=== PATIENT | female | born 1965 | race Caucasian/White ===

== ENCOUNTER 2016-07-31 17:12 | Observation (INO) | payer OTHER ==
[~2016-07-31] VITALS: Ht 167.6 cm; Wt 115.9 kg
[2016-07-31 20:05] VITALS: BP 136/83; PULSE 67; RESP 18; O2SAT 99
[2016-07-31] MEDS ORDERED: FLUO10CA30 PO (20:27)
[2016-07-31] MEDS ORDERED: MESA400C2 PO (20:27)
[2016-07-31] MEDS ORDERED: PRE10 PO (20:27)
[2016-07-31] MEDS ORDERED: FLUO20CA25 PO (20:28)
[2016-07-31] MEDS ORDERED: LACT1CAP75 PO (20:51)
[2016-07-31] MEDS ORDERED: ACET-2561 PO (20:51)
[2016-07-31] MEDS ORDERED: ASCO-294 PO (20:51)
[2016-07-31] MEDS ORDERED: FOLI200T12 PO (20:51)
[2016-07-31] MEDS ORDERED: Ondansetron 2 mg/mL 2 mL Inj IVPUSH PRN (20:55)
[2016-07-31] MEDS ORDERED: Atropine 1 mg/10 mL (Code) Syringe IVPUSH PRN (20:55)
[2016-07-31] MEDS ORDERED: Alum-Mag Hydrox-Simeth 30 mL Suspension PO PRN (20:55)
[2016-07-31] MEDS ORDERED: Polyethylene Glycol (PEG) 17 Gm Powder PO PRN (20:55)
[2016-07-31] MEDS ORDERED: Senna-Docusate 8.6-50 mg Tablet PO PRN (20:55)
--- NOTE | 2016-07-31 21:09 | NUR ---
Admit Note Pt arrived from [facility] to room 3026 at around 2000. Alert and oriented. Stable on feet. No chest pain, nitro patch is on.
[2016-07-31 21:26] LABS: BASOPHILS % (AUTO) 0.2 % (0-3); EOSINOPHILS % (AUTO) 0.9 % (0-5); MONOCYTES % (AUTO) 7.1 % (4-12); Mean Corpuscular Hemoglobin 26.2 pg (27.0-35.0); Mean Corpuscular Volume 84.8 fL (81-100); NEUTROPHILS % (AUTO) 70.1 % (40-74); Platelet Count 318 bil/L (150-400)
[2016-07-31 21:43] LABS: INR 0.93 ratio
[2016-07-31 22:17] LABS: Magnesium 2.4 mg/dL (1.6-2.6); TROPONIN T 0.01 ug/L (0.0-0.011)
--- NOTE | 2016-07-31 23:34 | PCM.HPMED ---
Subjective Date of Service July 31, 2016 Primary Provider: Admitting Physician: Osmel Grace Primary Care Physician: Nacho Velez Attending Physician: Osmel Grace Chief Complaint: chest pressure History of Present Illness: 50-year-old female with recent diagnosis of Crohn's disease currently on prednisone taper presents from [facility] for further evaluation of her chest pressure. Patient reports that she was at work yesterday when she noticed some intermittent substernal chest pressure. She was evaluated by the RN at her work is reported to have had an irregular heart rhythm so she was recommended to go to the hospital for further evaluation. Patient reports in the preceding day she had some left shoulder and left arm pain, which happen to worsen today. Patient describes the chest pressure tightness in the middle of her chest that last for a few minutes. She denies any associations or triggers. She reports that she will occasionally feel "clammy" when it occurs. She denies any associated nausea, headache, dizziness, ringing in her ears, or lightheadedness. She denies any recent illnesses, fevers, abdominal pain, or diarrhea. She has never had chest pressure like this before and denies any recent stress. She is currently on a prednisone taper that was initiated in May, is currently taking 10 mg daily, and is scheduled for taper down to 5 mg in 3 days. She reports she was diagnosed with Crohn's disease in November. In the ER of [facility], her vital signs were normal and stable. She had a CBC, CMP, chest x-ray, and troponin were all unremarkable. She had an EKG that showed sinus rhythm rate of 73, with PACs and questionable left atrial enlargement with early R-wave progression and probable LVH. Patient reports she had a normal stress test but that was very long ago. She reports she has an extensive family history of CAD, with both her parents having CABGs in their 50s. Cardiology was consulted by the ER, and was recommended to transfer over for ACS workup and stress testing. Review of Systems: 12 point review of system negative except as stated in history of present illness Allergies Coded Allergies: No Known Allergies (Verified Allergy, Unknown, 07/31/16) Home Medications Tylenol Vitamin C Fluoxetine 20 mg daily Multivitamin Probiotic Mesalamine 400 mg 4 times a day Prednisone 10 mg daily [facility] Crohn's disease diagnosed November 2015 Anxiety and depression Surgical History Denies any past surgical history Family History Extensive family history of CAD and diabetes Social History Hx Alcohol Use: No Hx Substance Use: No Hx Tobacco Use: No Living Arrangement: with Family Exam Vital Signs Vital Sign - Last Date Time Temp Pulse Resp B/P Pulse Ox O2 Delivery O2 Flow Rate FiO2 07/31/16 20:05 36.7 67 18 136/83 99 Room Air Exam General: Obese female who appears in no acute distress, alert and oriented 3 HEENT: PERRLA, EOMI, sclerae anicteric, oropharynx moist and pink Neck: Soft, nontender, no JVD noted CV: Regular rate and rhythm with frequent pauses, no M/R/C noted, peripheral pulses intact and equal Respiratory: CTAB, no wheezing or rhonchi, normal respiratory effort Abdomen: Obese, soft, nontender, nondistended, NABS MSK: Muscle strength grossly intact and equal, no swollen or tender joints, no clubbing or cyanosis or edema Neuro: Cranial 2-12 grossly intact, face symmetric, fluent and coherent speech Skin: Warm, dry, intact Psych: Appropriate mood and affect, linear thought process Lab and Diagnostics Result Diagram: 07/31/16211907/31/162119 X-Rays, CTs and MRIs 2 view CXR No acute CP disease 12-lead ECG EKG from outside hospital Sinus rhythm rate of 73, PACs, questionable JAM, early R-wave, probable LVH Assessment & Plan 50-year-old female with recent diagnosis of Crohn's disease currently on prednisone taper presents from [facility] for further evaluation of her chest pressure. Acute Chest pain, Present on Admission Patient was transferred over for further evaluation of her intermittent chest pressure. Her left arm and shoulder pain was present a few days prior, but did worsen today, does not appear to be associated with the chest pressure episodes. Her EKG does have some pertinent positives and she does have a fairly extensive family history. She will likely benefit from further ACS evaluation. DDX unstable angina versus intermittent arrhythmias. Placed on telemetry for CV monitoring We will plan to trend troponins Lipid profile in the a.m. for further risk stratification Repeat EKG for comparison Echocardiogram and ETT in the a.m. Cardiology was consulted by Outside Hospital. Nothing by mouth after midnight for stress test. Crohn's disease, POA Patient is currently on a prednisone taper at 10 mg daily, reports her symptoms are stable We will continue prednisone 10 mg daily, will remind patient to taper down to 5 mg on Wednesday We will continue her mesalamine Mood disorder, POA We will continue patient's fluoxetine Tylenol prn fever Zofran prn nausea Bowel regimen prn constipation CODE STATUS: Patient has an advanced directive and would like to be DO NOT RESUSCITATE/DO NOT INTUBATE Disposition: Patient is admitted under observation status with expected length of stay less than 2 midnights due to risk of adverse events, decompensation, and medical complexity Attending Statement The patient was seen and examined together with Dr. Foster on 07/31 and I agree with the history, exam and plan as outlined in the note above. Jd Foster DO July 31, 2016 23:34 Luis F Waldron MD July 31, 2016 23:50
[2016-08-01] VITALS (8 sets, daily range): BP systolic 109–160; BP diastolic 71–122; PULSE 51–89; RESP 18–21; O2SAT 93–100
[2016-08-01] MEDS: Sodium Chloride LOK Flush 10 mL Syringe IVFLUSH SCH ×2 (00:30→12:35)
[2016-08-01 02:36] LABS: BASOPHILS % (AUTO) 0.5 % (0-3); EOSINOPHILS % (AUTO) 1.1 % (0-5); MONOCYTES % (AUTO) 9.3 % (4-12); Mean Corpuscular Hemoglobin 25.9 pg (27.0-35.0); Mean Corpuscular Volume 85.5 fL (81-100); Platelet Count 276 bil/L (150-400)
[2016-08-01 03:14] LABS: TROPONIN T 0.01 ug/L (0.0-0.011)
[2016-08-01] MEDS: predniSONE 10 mg Tablet PO SCH ×2 (08:00→12:35)
[2016-08-01] MEDS ORDERED: _PredniSONE 10 mg Tablet PO SCH (08:30)
[2016-08-01] MEDS ORDERED: Multivit-Miner-Folic Acid-Iron Tablet PO SCH (08:30)
[2016-08-01] MEDS ORDERED: Ascorbic Acid 500 mg Tablet PO SCH (08:30)
--- NOTE | 2016-08-01 10:25 | NUR ---
Off the unit Pt off the unit for completion of stress test, reports mild chest pressure that waxes and wanes. Improved with positions changed. VSS. Will continue to monitor. Addendum: 08/01/16 at 1705 by KOFI BUITRAGO RN Pt returned to unit at approx 1145. No complains of chest pain, continues to report waxing and waning chest pressure. Lunch ordered, will continue to monitor
--- NOTE | 2016-08-01 13:47 | NUR ---
SW Brief Note/Readiness for Discharge Data: EMR reviewed. Pt is a 51 year old female admitted on 07/31/16 for Chest Pain R/O MIper H&P. Pt has [employer] insurance coverage and sees Grant Childress MD at [facility] for primary care. Pt lives in [place] with family and is independent at baseline. Per mornin rounds pt is likely to discharge tomorrow pending results of stress test. No discharge needs identified at this time. SW to continue to follow if any needs arise. Assessment: Pt who is independent at baseline Plan: Anticipated discharge home via POV when medically ready. No discharge needs identified at this time. SW to continue to follow if any needs arise. ISSA Lopes
[2016-08-01] MEDS ORDERED: Pantoprazole 4 mg/mL 10 mL Inj IVPUSH ONE (15:15)
--- NOTE | 2016-08-01 15:28 | DRSVH ---
[facility] [address] [address] Echocardiogram Report Name: MIKO SHEIKH RStudy Date : 08/01/2016 Height: 66 in Hospital Exam Location: [facility] Weight: 255 lb Gender: Female BSA: 2.2 m2 : 1965 Age: 51 yrs BP: 126/77 mmHg Reason For Study: Chest pain Ordering Physician: Performed By: Faye MONTEIROIST [facility] Interpretation Summary Normal sinus rhythm with frequent PACs and PVCs. Normal LV size, wall thickness, wall motion and LV systolic function. EF is 55-60%.Normal diastolic function. No significant valvular abnormalities. Normal chamber sizes. No prior study available for comparison. Procedure: A two-dimensional transthoracic echocardiogram with color flow and Doppler was performed. The study quality was technically adequate. There is no prior echocardiogram noted for this patient. The patient was in normal sinus rhythm during the exam. The patient had frequent PVCs during the exam. Left Ventricle: The left ventricle is normal in size, wall thickness, and systolic function without any focal wall motion abnormalities. The ejection fraction is estimated to be 55-60%. Spectral Doppler of the mitral inflow yields an E/A ratio that is between 0.8 and 1.5. Right Ventricle: The right ventricle is normal in size and function. Atria: Both atria are normal in size. There is no Doppler evidence for an interatrial shunt. Mitral Valve: The mitral valve is normal in structure and function. There is trace mitral regurgitation. Aortic Valve: The aortic valve is trileaflet. The aortic valve opens well. No aortic regurgitation is present. Tricuspid Valve: The tricuspid valve leaflets are thin and pliable. Pulmonary artery pressures cannot be estimated because of the lack of a measurable TR jet velocity. Pulmonic Valve: The pulmonic valve is not well seen, but is grossly normal. There is a trace or physiologic amount of pulmonic regurgitation. Great Vessels: The aortic root is normal size. The ascending aorta is normal in size. The aortic arch is normal in size. The IVC is of normal diameter and collapses greater than 50% with a sniff. This suggests a low right atrial pressure of 3 mm Hg. Pericardium/ Pleura There is no pericardial effusion. MMode/2D Measurements & Calculations LVIDd: 4.8 cm LA dimension: 4.0 cm RA long axis LVOT diam: 2.2 cm LVIDs: 3.4 cm Ao root diam FS: 29.7 % LA A2 area: 19.1 cm RA area EPSS: 0.43 cm LA A4 area: 15.8 cm Aortic Jxn: 2.4 cm IVSd: 1.00 cm LA length (vol) : 15.9 cm asc Aorta Diam LVPWd: 0.88 cm RA vol LA vol: 48.2 ml : 40.4 ml Ao Arch Diam (Prox LA vol index RA Trans): 2.9 cm : 18.2 mm2 IVC diam: 1.9 cm LV yates. diameter/BSA LV sys. diameter/BSA RVD1 (basal) (cm/m^2): 2.2 (cm/m^2): 1.5 Doppler Measurements & Calculations Ao V2 max MV E max kristopher MV E/A: 1.1 PA V2 max : 165.8 cm/sec : 88.9 cm/sec Med Peak E' Kristopher : 75.5 cm/sec Ao max PG MV A max kristopher PA mean PG : 11.0 mmHg : 77.5 cm/sec E/E' med: 10.1 Ao mean PG MV P1/2t: 56.3 msec Lat Peak E' Kristopher PA Accel Time : 0.13 sec LVOT Max Kristopher E/E' lat: 6.4 : 124.1 cm/sec E/e' average: 8.3 LUCILA(I,D): 2.9 cm sev ratio MV dec time MV P1/2t max kristopher Ao V2 mean LV V1 max PG : 0.19 sec : 113.2 cm/sec MVA(P1/2t): 3.9 cm2 Ao V2 VTI: 35.8 cm LV V1 VTI LUCILA(V,D): 2.8 cm2 : 27.1 cm PA V2 mean LUCILA indexed to BSA : 54.3 cm/sec (cm^2/m^2): 1.3 Reading Physician:03:27 PM
--- NOTE | 2016-08-01 17:03 | DRSVH ---
PROCEDURE: EITHER REST OR STRESS ONLY INDICATIONS: CHEST PAIN COMPARISON: None. Radiopharmaceutical: Stress dose 27.1 mCi of technetium 99 tetrofosmin Patient presentation: Patient is a 51-year-old woman with chest pain. FINDINGS: Graded exercise stress test: Following informed consent patient walked on the Misha protocol for 7 mi nutes and 10 seconds. Study was terminated due to fatigue. Patient did have chest pain initially in t he beginning of the study but it improved as she walked. Normal heart rate and blood pressure respons e without ST segment changes. Rest EKG demonstrated frequent PAC's in a pattern of trigeminy. This dy srhythmia disappeared during the stress test. There were no significant ST segment changes or ectopy during the stress test. [place] treadmill scores 7 consistent with low risk study. Raw data: Normal myocardial tracer uptake. Lung heart ratio is normal. Myocardial perfusion imaging: There is a small mild distal inferior perfusion defect; it is completel y resolved on placing the patient in prone position. Therefore it is most consistent with diaphragmat ic attenuation artifact. Quantitative gated SPECT: For whatever reason comments quantitative gated SPECT images are not availa ble for review. IMPRESSION: Low risk graded exercise stress test with myocardial perfusion imaging. No evidence of ischemia or prior infarct. Average exercise capacity for age without dynamic ST changes No prior study available for comparison Dictated by: Rubia Morgan M.D. on 08/01/2016 at 16:56 Approved by: Rubia Morgan M.D. on 08/01/2016 at 17:02
[2016-08-01] MEDS ORDERED: PANT40TA2 PO (17:13)
--- NOTE | 2016-08-01 17:14 | PCM.DC.MED ---
Discharge Summary Date of Service August 01, 2016 Dates of Hospitalization Date of Hospital Admission July 31, 2016 at 20:09 Date of Discharge: August 01, 2016 Providers: Admitting Physician: Osmel Grace Primary Care Physician: Nacho Monteiro Attending Physician: Osmel Grace Diagnosis at Time of Discharge Diagnosis at Time of Discharge None cardiac chest pain Possible reflux Procedures XRay, CTs & MRIs 2 view CXR No acute CP disease ECG 12 Lead EKG from outside hospital Sinus rhythm rate of 73, PACs, questionable JAM, early R-wave, probable LVH Cardiac Echo Impression Echocardiogram Report Name: MIKO SHEIKH RStudy Date : 08/01/2016 Height: 66 in Hospital Exam Location: [facility] Weight: 255 lb Gender: Female BSA: 2.2 m2 : 1965 Age: 51 yrs BP: 126/77 mmHg Reason For Study: Chest pain Ordering Physician: Performed By: Faye MONTEIROIST [facility] Interpretation Summary Normal sinus rhythm with frequent PACs and PVCs. Normal LV size, wall thickness, wall motion and LV systolic function. EF is 55-60%.Normal diastolic function. No significant valvular abnormalities. Normal chamber sizes. No prior study available for comparison. Other Diagnostics Date of Service: 08/01/162050 PROCEDURE: EITHER REST OR STRESS ONLY INDICATIONS: CHEST PAIN COMPARISON: None. Radiopharmaceutical: Stress dose 27.1 mCi of technetium 99 tetrofosmin Patient presentation: Patient is a 51-year-old woman with chest pain. FINDINGS: Graded exercise stress test: Following informed consent patient walked on the Misha protocol for 7 minutes and 10 seconds. Study was terminated due to fatigue. Patient did have chest pain initially in the beginning of the study but it improved as she walked. Normal heart rate and blood pressure response without ST segment changes. Rest EKG demonstrated frequent PAC's in a pattern of trigeminy. This dysrhythmia disappeared during the stress test. There were no significant ST segment changes or ectopy during the stress test. [place] treadmill scores 7 consistent with low risk study. Raw data: Normal myocardial tracer uptake. Lung heart ratio is normal. Myocardial perfusion imaging: There is a small mild distal inferior perfusion defect; it is completely resolved on placing the patient in prone position. Therefore it is most consistent with diaphragmatic attenuation artifact. Quantitative gated SPECT: For whatever reason comments quantitative gated SPECT images are not available for review. IMPRESSION: Low risk graded exercise stress test with myocardial perfusion imaging. No evidence of ischemia or prior infarct. Average exercise capacity for age without dynamic ST changes No prior study available for comparison Dictated by: Rubia Morgan M.D. on 08/01/2016 at 16:56 Approved by: Rubia Morgan M.D. on 08/01/2016 at 17:02 Brief History 50-year-old female with recent diagnosis of Crohn's disease currently on prednisone taper presents from [facility] for further evaluation of her chest pressure. Patient reports that she was at work yesterday when she noticed some intermittent substernal chest pressure. She was evaluated by the RN at her work is reported to have had an irregular heart rhythm so she was recommended to go to the hospital for further evaluation. Patient reports in the preceding day she had some left shoulder and left arm pain, which happen to worsen today. Patient describes the chest pressure tightness in the middle of her chest that last for a few minutes. She denies any associations or triggers. She reports that she will occasionally feel "clammy" when it occurs. She denies any associated nausea, headache, dizziness, ringing in her ears, or lightheadedness. She denies any recent illnesses, fevers, abdominal pain, or diarrhea. She has never had chest pressure like this before and denies any recent stress. She is currently on a prednisone taper that was initiated in May, is currently taking 10 mg daily, and is scheduled for taper down to 5 mg in 3 days. She reports she was diagnosed with Crohn's disease in November. In the ER of [facility], her vital signs were normal and stable. She had a CBC, CMP, chest x-ray, and troponin were all unremarkable. She had an EKG that showed sinus rhythm rate of 73, with PACs and questionable left atrial enlargement with early R-wave progression and probable LVH. Patient reports she had a normal stress test but that was very long ago. She reports she has an extensive family history of CAD, with both her parents having CABGs in their 50s. Cardiology was consulted by the ER, and was recommended to transfer over for ACS workup and stress testing. Hospital Course Acute Chest pain, Present on Admission - Troponin values remained negative. Monitoring on continuous telemetry as well was essentially unremarkable. Results of both stress testing and echo cardiogram were entirely normal and reassuring. As such alterative diagnosis were considered. Pt provided trial course of Protonix 20mg PO daily - Plan to follow up with PCP on discharge for further evaluation. Crohn's disease, POA - Patient is currently on a prednisone taper at 10 mg daily, reports her symptoms are stable - Continue taper as previously RX'd. Mood disorder, POA; out patient SSRI continued. Exam Vital Signs (Last) Date Time Temp Pulse Resp B/P Pulse Ox O2 Delivery O2 Flow Rate FiO2 08/01/16 16:41 36.8 72 20 120/74 93 Room Air Exam Pt comfortable seated in hospital bed Heart RRR no murmurs, rubs gallops NO pressure on palpation Lungs CTA Extremities well perfused. Nonfocal neurological examination. Test 07/31/16 21:20 08/01/16 02:23 Prothrombin Time 9.9sec (8.1-12.5) Prothromb Time International Ratio 0.93ratio Magnesium Level 2.4mg/dL (1.6-2.6) Thyroid Stimulating Hormone (TSH) 2.370uIU/mL (0.450-4.500) White Blood Count 8.3th/mm3 (3.8-10.1) Red Blood Count 4.40mil/mm3 (3.90-5.20) Hemoglobin 11.4g/dL (12.0-15.6) Hematocrit 37.6% (35.0-46.0) Mean Corpuscular Volume 85.5fL (81-100) Mean Corpuscular Hemoglobin 25.9pg (27.0-35.0) Mean Corpuscular Hemoglobin Concent 30.3% (32.0-37.0) Red Cell Distribution Width 18.0% (12.3-15.4) Platelet Count 276bil/L (150-400) Neutrophils (%) (Auto) 60.0% (40-74) Lymphocytes (%) (Auto) 29.0% (14-46) Monocytes (%) (Auto) 9.3% (4-12) Eosinophils (%) (Auto) 1.1% (0-5) Basophils (%) (Auto) 0.5% (0-3) Sodium Level 144mEq/L (134-144) Potassium Level 4.1mEq/L (3.5-5.2) Chloride Level 103mEq/L (97-108) Carbon Dioxide Level 27mmol/L (18-29) Blood Urea Nitrogen 19mg/dL (6-24) Creatinine 0.94mg/dL (0.57-1.00) Estimat Glomerular Filtration Rate 89mL/min (>59) Glucose Level 113mg/dL (60-99) Calcium Level 9.1mg/dL (8.5-10.1) Troponin T 0.010ug/L (0.0-0.011) Triglycerides Level 134mg/dL (0-149) Cholesterol Level 260mg/dL (100-199) LDL Cholesterol, Calculated 180.200mg/dL (0-99) VLDL Cholesterol 26.800mg/dL HDL Cholesterol 53mg/dL (>39) Cholesterol/HDL Ratio 4.91 (0.0-4.4) Discharge Medications Discharge Medications Ascorbate Calcium (Vitamin C) 500 Mg Tablet 1,000 MG PO DAILY (Reported) Fluoxetine (Fluoxetine) 20 Mg Capsule 20 MG PO DAILY (Reported) Folic Acid/Multivit-Minerals (Women's Multivitamin Gummies) 200 Mcg Tab.chew 400 MCG PO DAILY (Reported) Lactobacillus Combo No.10 (Probiotic) 1 Each Capsule 1 EACH PO DAILY (Reported) Mesalamine (Delzicol) 400 Mg Cap.drtab. 400 MG PO QID (Reported) Pantoprazole DR (Protonix) 40 Mg Tablet 40 MG PO DAILY Prescribed by: RAYMON MEI DO Prednisone (PredniSONE) 10 Mg Tablet 10 MG PO DAILY (Reported) As needed Acetaminophen (Extra Strength Non-Aspirin) 500 Mg Tablet 1,000 MG PO DAILY PRN PRN For Pain (Reported) Followup Plan Disposition: Home Follow-up plan Follow up with PCP, Dr Ward in ~1 week follow discharge for further evaluation and treatment. Discharge Diet: Heart Healthy Follow-up with PCP in: 1 week Time spent 45 minutes Raymon Mei DO August 01, 2016 17:13
--- NOTE | 2016-08-01 17:14 | PCM.DIMED ---
Discharge Instructions Date of Service August 01, 2016 Dates of Hospitalization July 31, 2016 at 20:09 Discharge Diagnosis Discharge Diagnosis None cardiac chest pain Possible reflux Diet Heart Healthy Patient Instructions Follow-up plan Follow up with your PCP, Dr Ward in ~1 week follow discharge for further evaluation and treatment. Follow-up with PCP in: 1 week Raymon Mei DO August 01, 2016 17:14
--- NOTE | 2016-08-01 18:01 | NUR ---
Discharge Pt discharged at this time, all belongings gathered and returned to pt. VSS, no complains of increased pain or chest discomfrt. IV D/Cd intact, tele monitor removed. Hard copy of new script given to pt to fill. Discharge packet printed and reviewed with pt and spouse. Pt declined offer of wheelchair. Pt escorted off [facility] by this RN, steady gait. Pt to be transported home in private vehicle driven by spouse
== END 2016-08-01 18:07 | disposition home or self-care (01) ==
LOC: MPC 20:09
PROVIDERS: ADMIT Internal Medicine; ATTEND Hospitalist
DX: R07.89 Other chest pain (principal); K50.90 Crohn's disease, unspecified, without complications; F39 Unspecified mood [affective] disorder; Z66 Do not resuscitate
CPT/HCPCS: 36415; 78451; 80048; 80061; 83036; 83735; 84443; 84484; 85025; 85610; 93017; A9502; C8929; G0378; G0379